=== PATIENT | male | born 1985 | race Two or more races ===

== ENCOUNTER 2024-07-10 05:53 | Emergency (ER) | payer SELFPAY ==
[~2024-07-10] VITALS: Ht 160 cm; Wt 71.0 kg
[2024-07-10 06:03] VITALS: O2SAT 98
[2024-07-10] MEDS: ACETAMINOPHEN 325MG TABLET PO ONE (06:33)
[2024-07-10 06:49] LABS: BASOPHILS % 0.6 % (0.0-2.0); EOSINOPHILS % 0.6 % (0.0-5.0); HEMATOCRIT. 47.1 % (42.0-52.0); HEMOGLOBIN. 15.5 g/dL (14.0-18.0); LYMPHOCYTES % 18.2 % (20.0-50.0); MEAN CORPUSCULAR HEMOGLOBIN 29.7 pg (28.0-32.0); MEAN CORPUSCULAR VOLUME 90.1 fL (80.0-94.0); MONOCYTES % 4.8 % (2.0-8.0); NEUTROPHILS % 75.8 % (40.0-76.0); RED BLOOD CELL COUNT 5.23 mill/uL (4.7-6.1); RED CELL DISTRIBUTION WIDTH 13.6 % (11.6-14.6); WHITE BLOOD COUNT 7.3 x1000/uL (4.5-11.0)
[2024-07-10 06:57] LABS: CHLORIDE 106 mEq/L (98-107); POTASSIUM 4.1 mEq/L (3.5-5.1); SODIUM 144 mEq/L (136-145)
[2024-07-10 06:58] LABS: CALCIUM 9.7 mg/dL (8.7-10.4); CARBON DIOXIDE 30 mEq/L (21-32)
[2024-07-10 07:03] LABS: CREATININE 0.9 mg/dL (0.6-1.3); GLUCOSE 118 mg/dL (70-105); UREA NITROGEN BLOOD 8 mg/dL (9-23)
[2024-07-10 07:05] LABS: ALANINE AMINOTRANSFERASE 18 IU/L (10-49); ALBUMIN 4.5 g/dL (3.2-4.8); ASPARTATE AMINOTRANSFERASE 21 IU/L (<34); BILIRUBIN TOTAL 0.9 mg/dL (0.1-1.0); PROTEIN TOTAL 7.4 g/dL (6.0-8.3)
[2024-07-10 07:06] LABS: DIFFERENTIAL COMMENT 1
[2024-07-10 07:26] LABS: MEAN PLATELET VOLUME 10.8 fl (7.4-10.4); PLATELET 101 x1000/uL (130-400)
[2024-07-10 07:34] VITALS: BP 136/91; PULSE 68; RESP 18; TEMP 37.1; O2SAT 99
== END 2024-07-10 08:17 | disposition home or self-care (01) ==
LOC: ER 05:53
DX: R51.9 Headache, unspecified (principal); F41.9 Anxiety disorder, unspecified; G47.09 Other insomnia; M79.18 Myalgia, other site; D69.6 Thrombocytopenia, unspecified
CPT/HCPCS: 36415; 80053; 85025; 99284